=== PATIENT | female | born 1990 | race Caucasian/White ===

== ENCOUNTER → 2022-01-29 | Outpatient (CLI) | payer OTHER | END | disposition home or self-care (01) | LOC: LAB SHORT 15:56 → LAB 15:56 | DX: O09.893 Supervision of other high risk pregnancies, third trimester (principal) | CPT/HCPCS: 87081; 87150 ==

== ENCOUNTER 2022-03-01 15:50 | Inpatient (IN) | payer OTHER ==
[~2022-03-01] VITALS: Ht 152.4 cm; Wt 99.7 kg
[2022-03-01 17:19] LABS: BASOPHILS ABSOLUTE AUTO 0.04 K/mm3 (0.00-0.23); BASOPHILS PERCENT AUTO 0 % (0-2); EOSINOPHILS ABSOLUTE AUTO 0.08 K/mm3 (0.00-0.68); EOSINOPHILS PERCENT AUTO 1 % (0-6); Hematocrit 37.4 % (33.0-51.0); Hemoglobin 12.5 g/dL (11.5-16.0); IMMATURE GRAN ABSOLUTE AUTO 0.06 K/mm3 (0.00-0.10); IMMATURE GRAN PERCENT AUTO 1 % (0-1); LYMPHOCYTES ABSOLUTE AUTO 2.16 K/mm3 (0.84-5.20); LYMPHOCYTES PERCENT AUTO 23 % (21-46); MONOCYTES PERCENT AUTO 7 % (4-13); Mean Corpuscular HGB 30.4 pg (26.0-34.0); Mean Corpuscular HGB Conc 33.4 g/dL (31.5-36.5); Mean Corpuscular Volume 91 fL (80-100); Mean Platelet Volume 12.9 fL (9.1-12.4); NEUTROPHILS ABSOLUTE AUTO 6.38 K/mm3 (1.96-9.15); NEUTROPHILS PERCENT AUTO 68 % (41-73); Platelet Count 194 K/mm3 (150-400); RDW Coefficient Variation 12.9 % (11.7-14.2); RDW Standard Deviation 42.3 fL (35.1-46.3); Red Blood Cell Count 4.11 M/mm3 (3.80-5.20); White Blood Cell Count 9.42 K/mm3 (4.00-11.30)
[2022-03-03 02:17] LABS: Source, Urine Foley catheter
[2022-03-03 02:37] LABS: Bilirubin, Urine Neg (Neg); Blood, Urine 5+ (Neg); Glucose Qualitative, Urine Neg (Neg); Ketones, Urine 1+ (Neg); Leukocyte Esterase, Urine 2+ (Neg); Nitrite, Urine Neg (Neg); Protein, Urine 3+ (Neg); Specific Gravity, Urine 1.015 (1.003-1.022); Urobilinogen, Urine NORM (Normal)
[2022-03-03 02:47] LABS: Appearance, Urine Hazy (Clear); Color, Urine Yellow (P-Yellow)
[2022-03-03 02:48] LABS: Amorphous Light (0-Heavy); Bacteria Mod /hpf; Red Blood Cells, Urine TNTC /hpf (0-2); Squamous Epithelial Cells Rare /hpf (Few); White Blood Cells, Urine 25-50 /hpf (0-5)
--- NOTE | 2022-03-03 02:54 | NUR ---
03/03/22 0254 Eleazar Huff CORD BLOOD GIVEN TO BABY RN, UMBILICAL CORD GIVEN TO JOSE L RT
[2022-03-03 02:55] LABS: PCO2 Cord - Arterial 62.2 mmHg (40-50); PO2 Cord - Arterial < 14 mmHg (16-20); pH Cord - Arterial 7.18 (7.28-7.35)
[2022-03-03 02:57] LABS: PCO2 Cord - Venous 51.4 mmHg (40-50); PO2 Cord - Venous < 14 mmHg (28-32); pH Umbilical Cord - Venous 7.26 (7.26-7.35)
[2022-03-04 05:55] LABS: BASOPHILS ABSOLUTE AUTO 0.02 K/mm3 (0.00-0.23); BASOPHILS PERCENT AUTO 0 % (0-2); EOSINOPHILS ABSOLUTE AUTO 0.08 K/mm3 (0.00-0.68); EOSINOPHILS PERCENT AUTO 1 % (0-6); Hematocrit 27.2 % (33.0-51.0); Hemoglobin 9.3 g/dL (11.5-16.0); IMMATURE GRAN ABSOLUTE AUTO 0.04 K/mm3 (0.00-0.10); IMMATURE GRAN PERCENT AUTO 0 % (0-1); LYMPHOCYTES ABSOLUTE AUTO 1.44 K/mm3 (0.84-5.20); LYMPHOCYTES PERCENT AUTO 13 % (21-46); MONOCYTES ABSOLUTE AUTO 0.63 K/mm3 (0.16-1.47); MONOCYTES PERCENT AUTO 6 % (4-13); Mean Corpuscular HGB 31.4 pg (26.0-34.0); Mean Corpuscular HGB Conc 34.2 g/dL (31.5-36.5); Mean Corpuscular Volume 92 fL (80-100); Mean Platelet Volume 12.5 fL (9.1-12.4); NEUTROPHILS ABSOLUTE AUTO 9.14 K/mm3 (1.96-9.15); NEUTROPHILS PERCENT AUTO 80 % (41-73); Platelet Count 128 K/mm3 (150-400); RDW Coefficient Variation 13.5 % (11.7-14.2); RDW Standard Deviation 45.1 fL (35.1-46.3); Red Blood Cell Count 2.96 M/mm3 (3.80-5.20); White Blood Cell Count 11.35 K/mm3 (4.00-11.30)
--- NOTE | 2022-03-05 14:30 | NUR ---
ASSUMED CARE REPT FROM Priscila JOHNSON RN, PT MEDICATED WITH 2 TYLENOL 1000MG PO PRIOR TO PT GETTING UP AND AMBULATING IN HALLS, PRUNE JUICE W/APPLE JUICE WARMED UP AND GIVEN TO PT
--- NOTE | 2022-03-05 19:00 | NUR ---
REPT TO PM SHIFT
[2022-03-06] MEDS ORDERED: FERSU300 PO (08:24)
[2022-03-06] MEDS ORDERED: ACET500 PO (08:25)
[2022-03-06] MEDS ORDERED: IBU800 MG PO (08:25)
[2022-03-06] MEDS ORDERED: MIRALAX11910 PO (08:25)
[2022-03-06] MEDS ORDERED: ROXICODONE5 MG PO (08:26)
[2022-03-06] MEDS ORDERED: PRENATAL TABLE1 EAC2 PO (08:26)
[2022-03-06] MEDS ORDERED: ONDA4 PO (08:26)
--- NOTE | 2022-03-06 08:36 | NUR ---
PT MOM HERE, DC TEACHING DONE, PT KNOWS WHEN SHE TOOK HER MEDS LAST, WROTE THEM ON THE DC INSTRUCTIONS, HAS TAKEN STUFF OUT TO CARE, PT ENCOURAGED TO USE CALL LIGHT WHEN READY TO DC HOME. HAVE A WHEELCHAIR READY. DR FARIA SENT SCRIPTS IN ELECTRONICALLY, ENCOURAGED PT TO CALL WITH QUESTIONS OR PROBLEMS, MOM AND BABY HAVE PPFU 03-07-2022 AT 1100 WITH LUANNE TOMORROW.
--- NOTE | 2022-03-06 09:36 | NUR ---
dc home, wheeled pt out in wheelchair, pt encouraged to call with questions, has ppfu scheduled. dr peralta also encouraged her to call the office with any questions if she has any. medications electronically sent by dr peralta to [facility]. pt is aware she needs to go there to pick them up.
== END 2022-03-06 09:36 | disposition home or self-care (01) | DRG 786 ==
LOC: OBS 15:50 → BC 15:52 → OBS 15:58 → BC 16:06
PROVIDERS: Obstetrics & Gynecology; ADMIT Obstetrics & Gynecology
PROC: 10D00Z1 Extraction of Products of Conception, Low, Open Approach (ICD-10-PCS; principal; 2022-03-03)
PROC: 00HU33Z Insertion of Infusion Device into Spinal Canal, Percutaneous Approach (ICD-10-PCS; 2022-03-03)
PROC: 3E0R3BZ Introduction of Anesthetic Agent into Spinal Canal, Percutaneous Approach (ICD-10-PCS; 2022-03-03)
PROC: 3E0P7VZ Introduction of Hormone into Female Reproductive, Via Natural or Artificial Opening (ICD-10-PCS; 2022-03-03)
PROC: 3E033VJ Introduction of Other Hormone into Peripheral Vein, Percutaneous Approach (ICD-10-PCS; 2022-03-03)
DX: O48.0 Post-term pregnancy (principal); O41.1230 Chorioamnionitis, third trimester, not applicable or unspecified; B00.2 Herpesviral gingivostomatitis and pharyngotonsillitis; O98.52 Other viral diseases complicating childbirth; D62 Acute posthemorrhagic anemia; O26.893 Other specified pregnancy related conditions, third trimester; O99.824 Streptococcus B carrier state complicating childbirth; O99.03 Anemia complicating the puerperium; K59.00 Constipation, unspecified; J45.909 Unspecified asthma, uncomplicated; O13.4 Gestational [pregnancy-induced] hypertension without significant proteinuria, complicating childbirth; Z3A.40 40 weeks gestation of pregnancy; Z37.0 Single live birth; Z67.11 Type A blood, Rh negative
CPT/HCPCS: 36415; 51702; 81001; 82803; 85025; 86850; 86900; 86901; 87086; A9270; J0171; J0290; J0456; J1580; J1720; J1885; J2370; J2405; J2550; J2590; J3010; J7050; J7120

== ENCOUNTER → 2022-03-24 | Outpatient (CLI) | payer OTHER ==
[~2022-03-24] MED LIST: ACET500 PO; FERSU300 PO; IBU800 MG PO; MIRALAX11910 PO; ONDA4 PO; PRENATAL TABLE1 EAC2 PO; ROXICODONE5 MG PO
== END | disposition home or self-care (01) ==
LOC: LAB SHORT 12:48 → LAB 12:48
DX: T81.40XA Infection following a procedure, unspecified, initial encounter (principal)
CPT/HCPCS: 87070; 87205

== ENCOUNTER → 2023-02-18 | Outpatient (CLI) | payer OTHER ==
[2023-02-22 13:09] LABS: HPV 16 Negative (Negative); HPV 18 Negative (Negative); HPV OTHER HR TYPES Negative (Negative)
== END | disposition home or self-care (01) ==
LOC: LAB 17:38 → LAB SHORT 17:38
PROVIDERS: Advanced Practice Midwife
DX: Z01.419 Encounter for gynecological examination (general) (routine) without abnormal findings (principal)
CPT/HCPCS: 87624; G0145

== ENCOUNTER → 2025-01-01 | Outpatient (CLI) | payer BC ==
[2025-01-01 18:41] LABS: U Amphetamine Screen Not Detected; U Barbituate Screen Not Detected; U Benzodiazapine Screen Not Detected; U Cannabinoids Screen Not Detected; U Cocaine Screen Not Detected; U Methadone Screen Not Detected; U Methamphetamine Screen Not Detected; U Opiates Screen Not Detected; U Phencyclidine Screen Not Detected
[2025-01-01 18:42] LABS: U Buprenorphine Screen Not Detected; U Oxycodone Screen Not Detected
== END ==
LOC: LAB 17:26 → LAB SHORT 17:26
PROVIDERS: Obstetrics & Gynecology
DX: R82.90 Unspecified abnormal findings in urine (principal)